=== PATIENT | male | born 1990 ===

== ENCOUNTER 2018-12-31 22:00 | Emergency (ER) | payer BC, SELFPAY ==
[2018-12-31 22:15] VITALS: RESP 18
[2018-12-31] MEDS ORDERED: Sodium Chloride 0.9% 1,000 ML IV STA (22:16)
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
[2018-12-31 22:45] LABS: BASO # 0.01 K/mm3 (0.0-2.0); BASO % 0.1 % (0.0-3.0); EOS % 0.4 % (1.5-5.0); HEMOGLOBIN 14.3 g/dL (14.0-18.0); LYMPH # 1.1 (1.2-3.4); LYMPH % 14.2 % (22.0-35.0); MEAN CELL VOLUME 90.6 fl (80.0-105.0); MEAN CORPUSCULAR HEMOGLOBIN 30.6 pg (25.0-35.0); MEAN CORPUSCULAR HGB CONC 33.7 g/dl (31.0-37.0); MEAN PLATELET VOLUME 9.8 fl (7.0-11.0); MONO # 0.3 (0.1-0.6); MONO % 3.2 % (1.0-6.0); RBC 4.68 10^6/uL (3.5-6.1); WHITE BLOOD COUNT 7.8 10^3/uL (4.5-11.0)
[2018-12-31 22:56] LABS: INR 1.06; PARTIAL THROMBOPLASTIN TIME 34.5 Seconds (26.9-38.3); PROTHROMBIN TIME 11.8 SECONDS (9.4-12.5)
[2018-12-31 22:57] LABS: ALB/GLOB RATIO 1.4 (1.1-1.8); ALBUMIN 4.7 g/dL (3.0-4.8); ALT/SGPT 40 U/L (7-56); AST/SGOT 34 U/L (17-59); BLOOD UREA NITROGEN 16 mg/dL (7-21); CALCIUM 9.4 mg/dL (8.4-10.5); GFR NON-AFRICAN AMERICAN > 60
[2018-12-31 23:09] LABS: TROPONIN I < 0.01 ng/mL
[2018-12-31 23:10] VITALS: BP 157/77; PULSE 86; O2SAT 100
[2018-12-31 23:47] VITALS: TEMP 98.2
--- NOTE | 2019-01-01 11:29 | RAD ---
Date of service: 12/31/2018 HISTORY: palpitations COMPARISON: No prior. TECHNIQUE: 1 view obtained. FINDINGS: LUNGS: No active pulmonary disease. PLEURA: No significant pleural effusion identified, no pneumothorax apparent. CARDIOVASCULAR: No aortic atherosclerotic calcification present. Normal cardiac size. No pulmonary vascular congestion. OSSEOUS STRUCTURES: No significant abnormalities. VISUALIZED UPPER ABDOMEN: Normal. OTHER FINDINGS: None. IMPRESSION: No active disease.
--- NOTE | 2019-01-01 11:52 | CARD ---
APPROVED REPORT Date of service: 12/31/2018 EKG Measurement Heart [id number] DC [id number] <Conclusion> Normal sinus rhythm Normal ECG
== END 2018-12-31 23:30 | disposition home or self-care (01) ==
LOC: ED 22:00
DX: F41.9 Anxiety disorder, unspecified (principal)
CPT/HCPCS: 71045; 80053; 84484; 85025; 85610; 85730; 93005; 99283; G0480; J7030